=== PATIENT | female | born 1935 | race Caucasian/White ===

== ENCOUNTER 2020-11-29 12:34 | Inpatient (IN) | payer MEDICARE ==
[2020-11-29 13:47] LABS: #Lymphocytes 0.5 thou/uL (1.20-3.40); #Monocytes 0.8 thou/uL (0.11-0.59); #Neutrophils 9.6 thou/uL (1.40-6.50); %Basophils 0.2 % (0.0-1.0); %Eosinophils 0.3 % (0.0-10.0); %Lymphocytes 4.6 % (21.0-51.0); %Neutrophils 87.9 % (42.0-75.0); Hemoglobin 11.9 g/dL (12.0-16.0); Mean Corpuscular HGB CONC 33.8 g/dL (32.0-36.0); Mean Corpuscular Hemoglobin 31.3 pg (27.0-31.0); Mean Corpuscular Volume 92.7 fL (78.0-98.0); RBC Distribution Width 12.1 % (11.5-14.5); White Blood Cell (WBC) Count 10.9 thou/uL (4.8-10.8)
[2020-11-29] MEDS ORDERED: Iopamidol-370 76% 500 ML 1 ML ONE (13:48)
[2020-11-29 14:04] LABS: ALT (SGPT) 17 U/L (8-55); AST (SGOT) 42 U/L (5-34); Acetaminophen Less than 6.0 mcg/mL (10.0-30.0); Albumin 3.3 g/dL (3.4-4.8); Alcohol Less than 10 mg/dL (Less than 10); Alkaline Phosphatase 73 U/L (40-110); Anion Gap 12 mmol/L (10-20); BUN (Urea Nitrogen) 17 mg/dL (9.8-20.1); CK (CPK) 1008 U/L (29-168); Calc. Creatinine Clearance 0 mL/min (70-130); Calcium 9.4 mg/dL (7.8-10.44); Carbon Dioxide 23 mmol/L (23-31); Chloride 100 mmol/L (98-107); Globulin 2.7 g/dL (2.4-3.5); Glucose 130 mg/dL (83-110); Lipase 5 U/L (8-78); Potassium 3.7 mmol/L (3.5-5.1); Salicylate Less than 8.0 mg/dL (15.0-30.0); Sodium 131 mmol/L (136-145)
[2020-11-29] MEDS ORDERED: hydrALAZINE 20 MG/ML VIAL ONE (14:06)
[2020-11-29 14:20] LABS: CKMB 12.5 ng/mL (0-6.6)
[2020-11-29 15:09] LABS: MDiff Complete? YES; Mean Platelet Volume 8.5 fL (7.4-10.4); Platelet Clumps SLIGHT; Platelet Count 106 thou/uL (130-400); Platelet Morphology Comment Appears Decreased; RBC Morphology Normal
[2020-11-29 16:04] LABS: Bacteria/HPF None Seen HPF (None Seen); Bilirubin Negative (Negative); Blood, Urine 1+ (Negative); Clarity Clear (Clear); Glucose, Urine (Dipstick) Normal (Negative); Ketone, Urine Trace mg/dL (Negative); Leukocyte Negative Leu/uL (Negative); Nitrite Negative (Negative); Protein, Urine (Dipstick) Negative (Neg-Trace); RBC/HPF 0-3 HPF (0-3); Specific Gravity, Urine 1.013 (1.002-1.036); Squamous Epithelial None Seen HPF (0-3); Urobilinogen Normal mg/dL (Less than 2); WBC/HPF 0-3 HPF (0-3)
[2020-11-29 16:12] LABS: Amphetamine Not Detected (NotDetected); Barbiturates Screen Not Detected (NotDetected); Benzodiazepine Screen Detected (NotDetected); Cocaine Metabolite Screen Not Detected (NotDetected); Methadone Not Detected (NotDetected); Methamphetamine Not Detected (NotDetected); Opiate Screen Not Detected (NotDetected); Oxycodone Screen Not Detected (NotDetected); Phencyclidine (PCP) Not Detected (NotDetected); THC/Cannabinoid Screen Not Detected (NotDetected); Tricyclic Screen Not Detected (NotDetected)
[2020-11-29 16:12] LABS: Magnesium 1.7 mg/dL (1.6-2.6)
[2020-11-29 16:39] LABS: Phosphorus 1.7 mg/dL (2.3-4.7)
[2020-11-29 17:03] LABS: SARS-CoV-2 NAA Rapid Test Not Detected (NotDetected)
[2020-11-29] MEDS ORDERED: Magnesium Sulfate 4 GM in Sodium Chloride 0.9% 250 ML 250 ML IVPB SCH (17:15)
[2020-11-29] MEDS ORDERED: Potassium Phosphate 30 MMOL, Magnesium Sulfate 4 GM in Sodium Chloride 0.9% 500 ML IVPB SCH (17:30)
[2020-11-29] MEDS ORDERED: hydrALAZINE 20 MG/ML VIAL SLOW IVP PRN (19:10)
[2020-11-29] MEDS ORDERED: Ondansetron PF 4 MG/2 ML Vial IVP PRN (19:15)
[2020-11-29] MEDS ORDERED: Ondansetron ODT 4 MG TAB SL PRN (19:15)
[2020-11-29] MEDS ORDERED: Sodium Chloride 0.9% 1,000 ML IV SCH (20:30)
[2020-11-29] MEDS ORDERED: Calcium Carbonate 500 MG ChewTAB PO PRN (20:44)
[2020-11-29] MEDS ORDERED: Acetaminophen 325 MG TAB PO PRN (20:44)
[2020-11-29] MEDS ORDERED: hydrALAZINE 25 MG TAB PO PRN (20:44)
[2020-11-29] MEDS ORDERED: Electrolyte Replacement Protocol 1 EACH FS SCH (21:00)
[2020-11-29] MEDS ORDERED: Cyanocobalamin 1000 MCG/ML VIAL IM SCH (21:00)
[2020-11-29] MEDS: Senokot S 8.6-50 MG TAB PO SCH (23:20)
[2020-11-30] MEDS ORDERED: Magnesium 2 GM/50 ML 2 GM in Premix Bag 1 BAG IVPB SCH (05:30)
[2020-11-30 05:32] LABS: Anion Gap 12 mmol/L (10-20); BUN (Urea Nitrogen) 13 mg/dL (9.8-20.1); CK (CPK) 1349 U/L (29-168); Calc. Creatinine Clearance 41 mL/min (70-130); Calcium 8.5 mg/dL (7.8-10.44); Carbon Dioxide 21 mmol/L (23-31); Chloride 106 mmol/L (98-107); Glucose 135 mg/dL (83-110); Magnesium 2.6 mg/dL (1.6-2.6); Potassium 3.5 mmol/L (3.5-5.1); Sodium 135 mmol/L (136-145)
[2020-11-30 05:37] LABS: Troponin I 0.053 ng/mL (< 0.028)
[2020-11-30 05:43] LABS: Phosphorus 3.3 mg/dL (2.3-4.7)
[2020-11-30] MEDS: PHOS-NAK 1 PKT PACK PO SCH ×2 (05:43→09:25)
[2020-11-30 06:59] LABS: #Eosinphils 0.2 thou/uL (0.0-0.7); #Lymphocytes 0.9 thou/uL (1.20-3.40); #Monocytes 0.9 thou/uL (0.11-0.59); #Neutrophils 6.1 thou/uL (1.40-6.50); %Basophils 0.5 % (0.0-1.0); %Eosinophils 2.4 % (0.0-10.0); %Lymphocytes 11.1 % (21.0-51.0); %Neutrophils 75.1 % (42.0-75.0); Mean Corpuscular HGB CONC 31.5 g/dL (32.0-36.0); Mean Corpuscular Hemoglobin 30.1 pg (27.0-31.0); Mean Corpuscular Volume 95.6 fL (78.0-98.0); Mean Platelet Volume 6.8 fL (7.4-10.4); Platelet Count 160 thou/uL (130-400); RBC Distribution Width 12.4 % (11.5-14.5); Red Blood Cell (RBC) Count 3.65 mill/uL (4.20-5.40); White Blood Cell (WBC) Count 8.1 thou/uL (4.8-10.8)
[2020-11-30] MEDS: Aspirin 81 mg Enteric Coated Tablet PO SCH (09:21)
[2020-11-30] MEDS: Cyanocobalamin (Vitamin B-12) 1,000 MCG TAB PO SCH (09:24)
[2020-11-30] MEDS: Multivit, Therapeutic 1 TAB PO SCH (09:24)
[2020-11-30] MEDS: Senokot S 8.6-50 MG TAB PO SCH ×2 (09:25→20:17)
[2020-11-30] MEDS ORDERED: hydrALAZINE 20 MG/ML VIAL SLOW IVP SCH (17:00)
[2020-11-30] MEDS ORDERED: hydrALAZINE 20 MG/ML VIAL SLOW IVP PRN (17:06)
[2020-11-30] MEDS ORDERED: Labetalol HCl 100 MG/20 ML VIAL SLOW IVP PRN ×2 (17:08→17:25)
[2020-11-30] MEDS ORDERED: Lisinopril 10 MG TAB PO SCH (18:30)
[2020-11-30] MEDS: Diazepam 5 MG TAB PO SCH (18:32)
[2020-11-30] MEDS: Lactated Ringer's 1,000 ML IV SCH (18:49)
[2020-11-30] MEDS: hydrALAZINE 20 MG/ML VIAL SLOW IVP PRN (20:17)
[2020-11-30] MEDS ORDERED: Melatonin 3 MG TAB PO SCH (21:00)
[2020-12-01] MEDS ORDERED: diphenhydrAMINE 50 MG/ML VIAL IVP SCH (00:15)
[2020-12-01] MEDS ORDERED: Lorazepam 2 MG/ML VIAL SLOW IVP SCH (00:15)
[2020-12-01] MEDS ORDERED: Ziprasidone 20 MG VIAL ONE (00:59)
[2020-12-01 05:10] LABS: Anion Gap 12 mmol/L (10-20); BUN (Urea Nitrogen) 14 mg/dL (9.8-20.1); CK (CPK) 966 U/L (29-168); Calc. Creatinine Clearance 44 mL/min (70-130); Calcium 8.8 mg/dL (7.8-10.44); Carbon Dioxide 23 mmol/L (23-31); Chloride 105 mmol/L (98-107); Glucose 130 mg/dL (83-110); Magnesium 2.1 mg/dL (1.6-2.6); Phosphorus 3.2 mg/dL (2.3-4.7); Potassium 3.8 mmol/L (3.5-5.1); Sodium 136 mmol/L (136-145)
[2020-12-01] MEDS ORDERED: Lisinopril 10 MG TAB PO SCH (09:00)
[2020-12-01] MEDS: Citalopram 20 MG TAB PO SCH (09:18)
[2020-12-01] MEDS: Diazepam 5 MG TAB PO SCH ×2 (09:18→20:33)
[2020-12-01] MEDS: Lactated Ringer's 1,000 ML IV SCH (09:19)
[2020-12-01] MEDS: Lisinopril 10 MG TAB PO SCH (09:19)
[2020-12-01] MEDS: Senokot S 8.6-50 MG TAB PO SCH ×2 (09:19→20:32)
[2020-12-01] MEDS: Cyanocobalamin (Vitamin B-12) 1,000 MCG TAB PO SCH (09:19)
[2020-12-01] MEDS: Multivit, Therapeutic 1 TAB PO SCH (09:19)
[2020-12-01] MEDS: Aspirin 81 mg Enteric Coated Tablet PO SCH (09:19)
[2020-12-01 09:56] LABS: #Eosinphils 0.2 thou/uL (0.0-0.7); #Lymphocytes 0.8 thou/uL (1.20-3.40); #Monocytes 0.9 thou/uL (0.11-0.59); #Neutrophils 7.2 thou/uL (1.40-6.50); %Basophils 0.4 % (0.0-1.0); %Eosinophils 1.7 % (0.0-10.0); %Monocytes 9.4 % (0.0-10.0); %Neutrophils 79.5 % (42.0-75.0); Hemoglobin 11.5 g/dL (12.0-16.0); MDiff Complete? YES; Mean Corpuscular HGB CONC 32.6 g/dL (32.0-36.0); Mean Corpuscular Hemoglobin 31.2 pg (27.0-31.0); Mean Corpuscular Volume 95.7 fL (78.0-98.0); Platelet Clumps MODERATE; Platelet Morphology Comment PLT clumps seen-ADEQ; RBC Distribution Width 12.2 % (11.5-14.5); Red Blood Cell (RBC) Count 3.69 mill/uL (4.20-5.40)
[2020-12-01] MEDS: hydrALAZINE 20 MG/ML VIAL SLOW IVP PRN (12:17)
[2020-12-01] MEDS: Melatonin 3 MG TAB PO SCH (20:33)
[2020-12-02] MEDS: Lactated Ringer's 1,000 ML IV SCH (01:30)
[2020-12-02 05:21] LABS: Phosphorus 3.6 mg/dL (2.3-4.7)
[2020-12-02 05:24] LABS: Anion Gap 9 mmol/L (10-20); BUN (Urea Nitrogen) 16 mg/dL (9.8-20.1); CK (CPK) 315 U/L (29-168); Calc. Creatinine Clearance 44 mL/min (70-130); Calcium 8.8 mg/dL (7.8-10.44); Carbon Dioxide 26 mmol/L (23-31); Chloride 106 mmol/L (98-107); Glucose 97 mg/dL (83-110); Magnesium 1.9 mg/dL (1.6-2.6); Potassium 4.2 mmol/L (3.5-5.1); Sodium 137 mmol/L (136-145)
[2020-12-02 06:56] LABS: #Eosinphils 0.2 thou/uL (0.0-0.7); #Lymphocytes 0.8 thou/uL (1.20-3.40); #Monocytes 0.7 thou/uL (0.11-0.59); #Neutrophils 5.2 thou/uL (1.40-6.50); %Basophils 0.1 % (0.0-1.0); %Eosinophils 2.8 % (0.0-10.0); %Lymphocytes 11.6 % (21.0-51.0); %Monocytes 9.7 % (0.0-10.0); %Neutrophils 75.8 % (42.0-75.0); Hemoglobin 10.3 g/dL (12.0-16.0); MDiff Complete? YES; Mean Corpuscular HGB CONC 32.4 g/dL (32.0-36.0); Mean Corpuscular Hemoglobin 31.5 pg (27.0-31.0); Mean Platelet Volume 9.2 fL (7.4-10.4); Platelet Clumps MARKED; Platelet Count 146 thou/uL (130-400); Platelet Morphology Comment PLT clumps seen-ADEQ; RBC Distribution Width 12.4 % (11.5-14.5); RBC Morphology Normal; Red Blood Cell (RBC) Count 3.26 mill/uL (4.20-5.40); White Blood Cell (WBC) Count 6.9 thou/uL (4.8-10.8)
[2020-12-02] MEDS ORDERED: Magnesium 2 GM/50 ML 2 GM in Premix Bag 1 BAG IVPB SCH (07:15)
[2020-12-02] MEDS: Senokot S 8.6-50 MG TAB PO SCH ×2 (08:50→20:07)
[2020-12-02] MEDS: Diazepam 5 MG TAB PO SCH ×2 (08:50→20:07)
[2020-12-02] MEDS: Multivit, Therapeutic 1 TAB PO SCH (08:50)
[2020-12-02] MEDS: Cyanocobalamin (Vitamin B-12) 1,000 MCG TAB PO SCH (08:50)
[2020-12-02] MEDS: Lisinopril 10 MG TAB PO SCH (08:51)
[2020-12-02] MEDS: Citalopram 20 MG TAB PO SCH (08:51)
[2020-12-02] MEDS: Aspirin 81 mg Enteric Coated Tablet PO SCH (08:51)
[2020-12-02 11:15] VITALS: BMI 19.8
[2020-12-02] MEDS: Melatonin 3 MG TAB PO SCH (20:07)
[2020-12-03 05:18] LABS: #Eosinphils 0.3 thou/uL (0.0-0.7); #Lymphocytes 0.9 thou/uL (1.20-3.40); #Monocytes 0.7 thou/uL (0.11-0.59); #Neutrophils 4.7 thou/uL (1.40-6.50); %Basophils 0.5 % (0.0-1.0); %Eosinophils 4.6 % (0.0-10.0); %Neutrophils 69.9 % (42.0-75.0); Hemoglobin 10.5 g/dL (12.0-16.0); Hypochromia SLIGHT = 6-15 cells (100X) (0-5/hpf); MDiff Complete? YES; Mean Corpuscular HGB CONC 33.3 g/dL (32.0-36.0); Mean Corpuscular Hemoglobin 32.1 pg (27.0-31.0); Mean Corpuscular Volume 96.6 fL (78.0-98.0); Mean Platelet Volume 8.8 fL (7.4-10.4); Platelet Morphology Comment Appears Adequate; RBC Distribution Width 12.3 % (11.5-14.5); Red Blood Cell (RBC) Count 3.26 mill/uL (4.20-5.40); White Blood Cell (WBC) Count 6.7 thou/uL (4.8-10.8)
[2020-12-03 05:19] LABS: Phosphorus 3.2 mg/dL (2.3-4.7)
[2020-12-03 05:23] LABS: Anion Gap 7 mmol/L (10-20); BUN (Urea Nitrogen) 18 mg/dL (9.8-20.1); CK (CPK) 144 U/L (29-168); Calc. Creatinine Clearance 49 mL/min (70-130); Calcium 8.4 mg/dL (7.8-10.44); Carbon Dioxide 29 mmol/L (23-31); Chloride 104 mmol/L (98-107); Glucose 103 mg/dL (83-110); Magnesium 1.9 mg/dL (1.6-2.6); Potassium 3.9 mmol/L (3.5-5.1); Sodium 136 mmol/L (136-145)
[2020-12-03] MEDS ORDERED: Magnesium 2 GM/50 ML 2 GM in Premix Bag 1 BAG IVPB SCH (06:30)
[2020-12-03] MEDS: Citalopram 20 MG TAB PO SCH (08:01)
[2020-12-03] MEDS: Cyanocobalamin (Vitamin B-12) 1,000 MCG TAB PO SCH (08:01)
[2020-12-03] MEDS: Lisinopril 10 MG TAB PO SCH (08:01)
[2020-12-03] MEDS: Senokot S 8.6-50 MG TAB PO SCH ×2 (08:01→21:20)
[2020-12-03] MEDS: Diazepam 5 MG TAB PO SCH ×2 (08:01→21:19)
[2020-12-03] MEDS: Multivit, Therapeutic 1 TAB PO SCH (08:01)
[2020-12-03] MEDS: Aspirin 81 mg Enteric Coated Tablet PO SCH (08:01)
[2020-12-03] MEDS: hydrALAZINE 20 MG/ML VIAL SLOW IVP PRN (11:44)
[2020-12-03] MEDS: Melatonin 3 MG TAB PO SCH (21:19)
[2020-12-04 05:06] LABS: Anion Gap 11 mmol/L (10-20); BUN (Urea Nitrogen) 19 mg/dL (9.8-20.1); Calc. Creatinine Clearance 51 mL/min (70-130); Calcium 8.7 mg/dL (7.8-10.44); Carbon Dioxide 25 mmol/L (23-31); Chloride 102 mmol/L (98-107); Glucose 112 mg/dL (83-110); Potassium 4.5 mmol/L (3.5-5.1); Sodium 133 mmol/L (136-145)
[2020-12-04] MEDS: hydrALAZINE 20 MG/ML VIAL SLOW IVP PRN ×2 (05:27→17:36)
[2020-12-04] MEDS: Senokot S 8.6-50 MG TAB PO SCH ×2 (09:10→20:46)
[2020-12-04] MEDS: Lisinopril 10 MG TAB PO SCH (09:11)
[2020-12-04] MEDS: Multivit, Therapeutic 1 TAB PO SCH (09:11)
[2020-12-04] MEDS: Cyanocobalamin (Vitamin B-12) 1,000 MCG TAB PO SCH (09:11)
[2020-12-04] MEDS: Citalopram 20 MG TAB PO SCH (09:11)
[2020-12-04] MEDS: Aspirin 81 mg Enteric Coated Tablet PO SCH (09:11)
[2020-12-04] MEDS: Diazepam 5 MG TAB PO SCH ×2 (09:11→20:46)
[2020-12-04] MEDS: Melatonin 3 MG TAB PO SCH (20:46)
[2020-12-04] MEDS: Gabapentin 300 MG CAP PO SCH (21:41)
[2020-12-05] MEDS: Cyanocobalamin (Vitamin B-12) 1,000 MCG TAB PO SCH (09:06)
[2020-12-05] MEDS: Lisinopril 10 MG TAB PO SCH (09:06)
[2020-12-05] MEDS: Gabapentin 300 MG CAP PO SCH ×2 (09:06→09:09)
[2020-12-05] MEDS: Aspirin 81 mg Enteric Coated Tablet PO SCH (09:06)
[2020-12-05] MEDS: Senokot S 8.6-50 MG TAB PO SCH ×2 (09:07→21:14)
[2020-12-05] MEDS: Citalopram 20 MG TAB PO SCH (09:07)
[2020-12-05] MEDS: Diazepam 5 MG TAB PO SCH ×2 (09:07→21:15)
[2020-12-05] MEDS: Multivit, Therapeutic 1 TAB PO SCH (09:07)
[2020-12-05] MEDS: Diclofenac 1% 100 GM GEL TP SCH ×3 (13:35→21:14)
[2020-12-05] MEDS ORDERED: Polyethylene Glycol 3350 17 GM Packet PO SCH (15:15)
[2020-12-05] MEDS: Melatonin 3 MG TAB PO SCH (21:13)
[2020-12-06] MEDS ORDERED: Polyethylene Glycol 3350 17 GM Packet PO SCH (09:00)
[2020-12-06] MEDS: Senokot S 8.6-50 MG TAB PO SCH (09:03)
[2020-12-06] MEDS: Lisinopril 10 MG TAB PO SCH (09:03)
[2020-12-06] MEDS: Aspirin 81 mg Enteric Coated Tablet PO SCH (09:03)
[2020-12-06] MEDS: Citalopram 20 MG TAB PO SCH (09:03)
[2020-12-06] MEDS: Cyanocobalamin (Vitamin B-12) 1,000 MCG TAB PO SCH (09:03)
[2020-12-06] MEDS: Multivit, Therapeutic 1 TAB PO SCH (09:03)
[2020-12-06] MEDS: Diazepam 5 MG TAB PO SCH (09:03)
[2020-12-06] MEDS: Diclofenac 1% 100 GM GEL TP SCH ×2 (09:23→14:26)
[2020-12-06 16:22] VITALS: BP 181/85; TEMP 98.4
== END 2020-12-06 16:40 | DRG 558 ==
LOC: ERS 12:34 → ERHOLD 16:04 → 2NO 18:17
PROVIDERS: ADMIT Internal Medicine; ATTEND Internal Medicine
DX: M62.82 Rhabdomyolysis (principal); F33.9 Major depressive disorder, recurrent, unspecified; Z20.822 Contact with and (suspected) exposure to COVID-19; E87.1 Hypo-osmolality and hyponatremia; F05 Delirium due to known physiological condition; F19.931 Other psychoactive substance use, unspecified with withdrawal delirium; F03.91 Unspecified dementia, unspecified severity, with behavioral disturbance; I16.0 Hypertensive urgency; I10 Essential (primary) hypertension; G62.9 Polyneuropathy, unspecified; F41.9 Anxiety disorder, unspecified; I44.0 Atrioventricular block, first degree; I08.3 Combined rheumatic disorders of mitral, aortic and tricuspid valves; M79.7 Fibromyalgia; Z60.2 Problems related to living alone; R77.8 Other specified abnormalities of plasma proteins; E83.39 Other disorders of phosphorus metabolism; E83.42 Hypomagnesemia; Z78.1 Physical restraint status; Z88.8 Allergy status to other drugs, medicaments and biological substances; Z79.899 Other long term (current) drug therapy
CPT/HCPCS: 0240U; 36415; 70450; 71045; 71275; 72125; 80048; 80053; 80306; 80307; 81003; 81015; 82140; 82550; 82553; 82607; 82746; 83690; 83735; 83880; 84100; 84443; 84484; 85025; 85379; 93005; 93306; 93880; 96374; J0360; J2060; J3420; J3475; J3486; J7030; Q9967

== ENCOUNTER 2020-12-31 11:45 | Outpatient (CLI) | payer MEDICARE | END 2020-12-31 11:46 | disposition home or self-care (01) | LOC: RAD 11:45 | PROVIDERS: ATTEND Family Medicine | DX: M25.561 Pain in right knee (principal); M25.552 Pain in left hip; M17.12 Unilateral primary osteoarthritis, left knee; M16.12 Unilateral primary osteoarthritis, left hip ==

== ENCOUNTER 2021-10-17 11:35 | Emergency (ER) | payer MEDICARE ==
[2021-10-17] MEDS ORDERED: HYDROcodone/Acetaminophen 10/325 mg Tablet ONE (12:43)
== END 2021-10-17 14:20 | disposition home or self-care (01) ==
LOC: ERS 11:35
DX: S22.32XA Fracture of one rib, left side, initial encounter for closed fracture (principal); W19.XXXA Unspecified fall, initial encounter
CPT/HCPCS: 71045

== ENCOUNTER 2021-10-21 08:51 | Emergency (ER) | payer OTHER, MEDICARE ==
[2021-10-21 09:50] LABS: #Eosinphils 0.1 thou/uL (0.0-0.7); #Lymphocytes 0.7 thou/uL (1.20-3.40); #Monocytes 0.9 thou/uL (0.11-0.59); #Neutrophils 9.8 thou/uL (1.40-6.50); %Eosinophils 0.6 % (0.0-10.0); %Lymphocytes 5.7 % (21.0-51.0); %Monocytes 7.9 % (0.0-10.0); %Neutrophils 85.9 % (42.0-75.0); Hemoglobin 12.6 g/dL (12.0-16.0); Mean Corpuscular HGB CONC 32.4 g/dL (32.0-36.0); Mean Corpuscular Hemoglobin 31.7 pg (27.0-31.0); RBC Distribution Width 11.5 % (11.5-14.5); Red Blood Cell (RBC) Count 3.96 mill/uL (4.20-5.40); White Blood Cell (WBC) Count 11.4 thou/uL (4.8-10.8)
[2021-10-21 10:03] LABS: MDiff Complete? YES; Mean Platelet Volume 8.9 fL (7.4-10.4); Platelet Clumps SLIGHT; Platelet Count 138 thou/uL (130-400); Platelet Morphology Comment Appears Adequate; Polychromasia SLIGHT = 2-3 cells (100X) (0-2/hpf)
[2021-10-21 10:06] LABS: ALT (SGPT) 18 U/L (8-55); AST (SGOT) 31 U/L (5-34); Albumin 3.8 g/dL (3.4-4.8); Alkaline Phosphatase 80 U/L (40-110); Anion Gap 14 mmol/L (10-20); BUN (Urea Nitrogen) 25 mg/dL (9.8-20.1); Bilirubin, Total 0.9 mg/dL (0.2-1.2); Calc. Creatinine Clearance 0 mL/min (70-130); Calcium 9.9 mg/dL (7.8-10.44); Carbon Dioxide 28 mmol/L (23-31); Chloride 93 mmol/L (98-107); Globulin 3.1 g/dL (2.4-3.5); Glucose 108 mg/dL (83-110); Potassium 4.3 mmol/L (3.5-5.1); Protein, Total 6.9 g/dL (5.8-8.1); Sodium 131 mmol/L (136-145)
[2021-10-21 10:15] LABS: Bilirubin Negative (Negative); Blood, Urine Negative (Negative); Clarity Clear (Clear); Glucose, Urine (Dipstick) Normal (Negative); Ketone, Urine Negative (Negative); Leukocyte Negative Leu/uL (Negative); Nitrite Negative (Negative); Protein, Urine (Dipstick) Negative (Neg-Trace); Specific Gravity, Urine 1.013 (1.002-1.036); Urobilinogen Normal mg/dL (Less than 2); pH, Urine 6.5 (5.0-9.0)
== END 2021-10-21 14:50 | disposition home or self-care (01) ==
LOC: ERS 08:51
DX: M43.12 Spondylolisthesis, cervical region (principal); I44.0 Atrioventricular block, first degree; I10 Essential (primary) hypertension; F03.90 Unspecified dementia, unspecified severity, without behavioral disturbance, psychotic disturbance, mood disturbance, and anxiety; G62.9 Polyneuropathy, unspecified; M79.7 Fibromyalgia; W01.198A Fall on same level from slipping, tripping and stumbling with subsequent striking against other object, initial encounter; Z79.82 Long term (current) use of aspirin; Z79.899 Other long term (current) drug therapy
CPT/HCPCS: 36415; 70450; 72125; 80053; 81003; 85025; 93005; 94760

== ENCOUNTER 2021-11-22 10:28 | Outpatient (CLI) | payer MEDICARE | END 2021-11-22 10:29 | disposition home or self-care (01) | LOC: TBSIIMAG 10:28 | PROVIDERS: ATTEND Neurological Surgery | DX: M43.12 Spondylolisthesis, cervical region (principal); M25.78 Osteophyte, vertebrae; M47.812 Spondylosis without myelopathy or radiculopathy, cervical region; M50.31 Other cervical disc degeneration, high cervical region; M48.02 Spinal stenosis, cervical region; M43.13 Spondylolisthesis, cervicothoracic region; M48.03 Spinal stenosis, cervicothoracic region; M47.813 Spondylosis without myelopathy or radiculopathy, cervicothoracic region | CPT/HCPCS: 72050; 72141 ==

== ENCOUNTER 2022-01-03 08:00 | Inpatient (IN) | payer MEDICARE ==
[2022-01-04 15:22] VITALS: BMI 18.6
[2022-01-06] MEDS ORDERED: Neomycin-Polymyxin 1 ML AMP ONE (08:40)
[2022-01-06] MEDS ORDERED: Thrombin 5000 UNITS/5 ML VIAL ONE (08:40)
[2022-01-06] MEDS ORDERED: Bupivacaine HCl 0.5%/Epinephrine 1:200,000/PF 30 ml Vial ONE (08:40)
[2022-01-06] MEDS ORDERED: Bacitracin Zinc Ointment 30 gm TUBE ONE (08:40)
[2022-01-06] MEDS ORDERED: fentaNYL Citrate/PF 100 MCG/2 ML SYRINGE ONE (09:15)
[2022-01-06] MEDS ORDERED: Sodium Chloride 0.9% 100 ML ONE (09:21)
[2022-01-06] MEDS ORDERED: CEFAZOLIN 2 GM VIAL ONE (09:21)
[2022-01-06] MEDS ORDERED: Glycopyrrolate 0.2 MG/ML 5 ML SYRINGE ONE (09:38)
[2022-01-06] MEDS ORDERED: ePHEDrine 50 MG/ML VIAL ONE (09:38)
[2022-01-06] MEDS ORDERED: Phenylephrine 10 MG/ML VIAL ONE (09:38)
[2022-01-06] MEDS ORDERED: Ketorolac Tromethamine 30 MG/ML VIAL ONE (09:38)
[2022-01-06] MEDS ORDERED: NEOSTIGMINE 3 MG/3 ML SYR 3 MG/3 ML SYRINGE ONE (09:38)
[2022-01-06] MEDS ORDERED: Rocuronium Bromide 10 MG/ML (10ML VIAL) ONE (09:38)
[2022-01-06] MEDS ORDERED: Dexamethasone 20 MG/5 ML VIAL ONE (09:38)
[2022-01-06] MEDS ORDERED: Ondansetron PF 4 MG/2 ML Vial ONE (09:38)
[2022-01-06] MEDS ORDERED: PROPOFOL 200 MG/20 ML VIAL ONE (09:38)
[2022-01-06] MEDS ORDERED: HYDROmorphone 2 MG/ML VIAL ONE (13:05)
[2022-01-06] MEDS ORDERED: diphenhydrAMINE 25 MG CAP PO PRN (13:23)
[2022-01-06] MEDS ORDERED: Promethazine HCl 12.5 MG SUPP PR PRN (13:23)
[2022-01-06] MEDS ORDERED: Acetaminophen 650 MG Suppository PR PRN (13:23)
[2022-01-06] MEDS ORDERED: Promethazine 25 MG TAB PO PRN (13:23)
[2022-01-06] MEDS ORDERED: HYDROcodone/Acetaminophen 10/325 mg Tablet PO PRN (13:23)
[2022-01-06] MEDS ORDERED: Morphine 2 MG/ML VIAL SLOW IVP PRN (13:23)
[2022-01-06] MEDS ORDERED: Ondansetron PF 4 MG/2 ML Vial IVP PRN (13:23)
[2022-01-06] MEDS ORDERED: Promethazine HCl 25 MG/ML VIAL IM PRN ×2 (13:23→13:41)
[2022-01-06] MEDS ORDERED: Promethazine HCl 25 MG/ML VIAL IVPB PRN (13:41)
[2022-01-06] MEDS ORDERED: Ondansetron HCl/PF 4 MG/2 ML Vial IVP PRN (13:41)
[2022-01-06] MEDS ORDERED: Polyethylene Glycol 3350 17 GM Packet PO PRN (15:35)
[2022-01-06 15:51] LABS: #Basophils 0.2 thou/uL (0.0-0.2); #Lymphocytes 0.2 thou/uL (1.20-3.40); #Monocytes 0.2 thou/uL (0.11-0.59); #Neutrophils 11.1 thou/uL (1.40-6.50); %Basophils 1.9 % (0.0-1.0); %Eosinophils 0.1 % (0.0-10.0); %Lymphocytes 1.6 % (21.0-51.0); %Monocytes 1.9 % (0.0-10.0); %Neutrophils 94.4 % (42.0-75.0); Hemoglobin 11.9 g/dL (12.0-16.0); Mean Corpuscular HGB CONC 33.5 g/dL (32.0-36.0); Mean Corpuscular Hemoglobin 32.1 pg (27.0-31.0); Mean Corpuscular Volume 95.9 fL (78.0-98.0); Mean Platelet Volume 6.5 fL (7.4-10.4); Platelet Count 213 thou/uL (130-400); RBC Distribution Width 11.6 % (11.5-14.5); Red Blood Cell (RBC) Count 3.71 mill/uL (4.20-5.40); White Blood Cell (WBC) Count 11.8 thou/uL (4.8-10.8)
[2022-01-06 16:09] LABS: Anion Gap 16 mmol/L (10-20); BUN (Urea Nitrogen) 26 mg/dL (9.8-20.1); Calc. Creatinine Clearance 28 mL/min (70-130); Calcium 9.2 mg/dL (7.8-10.44); Carbon Dioxide 23 mmol/L (23-31); Chloride 96 mmol/L (98-107); Estimated GFR 44; Glucose 153 mg/dL (83-110); Potassium 3.9 mmol/L (3.5-5.1); Sodium 131 mmol/L (136-145)
[2022-01-06 17:26] LABS: Magnesium 1.7 mg/dL (1.6-2.6)
[2022-01-06] MEDS: CEFAZOLIN 2 GM in Sodium Chloride 0.9% 100 ML IVPB SCH (18:52)
[2022-01-06] MEDS: Senokot S 8.6-50 MG TAB PO SCH (21:22)
[2022-01-06] MEDS: busPIRone HCl 5 MG TAB PO SCH (21:22)
[2022-01-06] MEDS: Acetaminophen/Codeine 30-300mg Tablet PO PRN (21:22)
[2022-01-06] MEDS: Sodium Chloride 0.9% 1,000 ML IV SCH (21:22)
[2022-01-07] MEDS: Sodium Chloride 0.9% 1,000 ML IV SCH (00:29)
[2022-01-07] MEDS: CEFAZOLIN 2 GM in Sodium Chloride 0.9% 100 ML IVPB SCH ×2 (01:10→09:22)
[2022-01-07 06:00] LABS: Anion Gap 12 mmol/L (10-20); BUN (Urea Nitrogen) 26 mg/dL (9.8-20.1); Calc. Creatinine Clearance 27 mL/min (70-130); Calcium 8.6 mg/dL (7.8-10.44); Carbon Dioxide 26 mmol/L (23-31); Chloride 96 mmol/L (98-107); Estimated GFR 44; Glucose 128 mg/dL (83-110); Potassium 4.6 mmol/L (3.5-5.1); Sodium 129 mmol/L (136-145)
[2022-01-07 06:11] LABS: #Lymphocytes 0.8 thou/uL (1.20-3.40); #Monocytes 1.1 thou/uL (0.11-0.59); #Neutrophils 7.2 thou/uL (1.40-6.50); %Basophils 0.1 % (0.0-1.0); %Eosinophils 0.3 % (0.0-10.0); %Lymphocytes 8.4 % (21.0-51.0); %Monocytes 12.1 % (0.0-10.0); %Neutrophils 79.2 % (42.0-75.0); Hemoglobin 9.8 g/dL (12.0-16.0); MDiff Complete? YES; Mean Corpuscular HGB CONC 33.3 g/dL (32.0-36.0); Mean Corpuscular Hemoglobin 32.2 pg (27.0-31.0); Mean Corpuscular Volume 96.7 fL (78.0-98.0); Mean Platelet Volume 8.2 fL (7.4-10.4); Platelet Clumps MODERATE; Platelet Morphology Comment PLT clumps seen-ADEQ; RBC Distribution Width 11.7 % (11.5-14.5); Red Blood Cell (RBC) Count 3.05 mill/uL (4.20-5.40); White Blood Cell (WBC) Count 9.1 thou/uL (4.8-10.8)
[2022-01-07] MEDS ORDERED: Hydrochlorothiazide 25 MG TAB PO SCH (09:00)
[2022-01-07] MEDS: busPIRone HCl 5 MG TAB PO SCH ×2 (09:18→20:45)
[2022-01-07] MEDS: Senokot S 8.6-50 MG TAB PO SCH ×2 (09:18→20:45)
[2022-01-07] MEDS: Citalopram 20 MG TAB PO SCH (09:18)
[2022-01-07] MEDS: Acetaminophen/Codeine 30-300mg Tablet PO PRN ×3 (09:19→20:45)
[2022-01-07] MEDS ORDERED: Sodium Chloride 0.9% 1,000 ML IV SCH (10:42)
[2022-01-07] MEDS: hydrALAZINE 20 MG/ML VIAL SLOW IVP PRN (11:59)
[2022-01-08] MEDS: hydrALAZINE 20 MG/ML VIAL SLOW IVP PRN ×2 (05:03→21:59)
[2022-01-08 06:06] LABS: Anion Gap 12 mmol/L (10-20); BUN (Urea Nitrogen) 17 mg/dL (9.8-20.1); Calc. Creatinine Clearance 40 mL/min (70-130); Carbon Dioxide 24 mmol/L (23-31); Chloride 94 mmol/L (98-107); Estimated GFR 68; Glucose 125 mg/dL (83-110); Potassium 4.2 mmol/L (3.5-5.1); Sodium 126 mmol/L (136-145)
[2022-01-08 06:13] LABS: #Eosinphils 0.1 thou/uL (0.0-0.7); #Monocytes 1.3 thou/uL (0.11-0.59); #Neutrophils 8.5 thou/uL (1.40-6.50); %Basophils 0.3 % (0.0-1.0); %Eosinophils 0.9 % (0.0-10.0); %Lymphocytes 9.3 % (21.0-51.0); %Monocytes 11.8 % (0.0-10.0); %Neutrophils 77.6 % (42.0-75.0); Hemoglobin 11.2 g/dL (12.0-16.0); Mean Corpuscular HGB CONC 32.4 g/dL (32.0-36.0); Mean Corpuscular Hemoglobin 31.6 pg (27.0-31.0); Mean Corpuscular Volume 97.6 fL (78.0-98.0); Mean Platelet Volume 6.1 fL (7.4-10.4); Platelet Count 182 thou/uL (130-400); RBC Distribution Width 11.6 % (11.5-14.5); Red Blood Cell (RBC) Count 3.56 mill/uL (4.20-5.40); White Blood Cell (WBC) Count 10.9 thou/uL (4.8-10.8)
[2022-01-08] MEDS ORDERED: Labetalol HCl 100 MG/20 ML VIAL SLOW IVP SCH (07:45)
[2022-01-08] MEDS ORDERED: Sodium Chloride 0.9% 1,000 ML IV SCH ×2 (07:45)
[2022-01-08] MEDS: Citalopram 20 MG TAB PO SCH (08:28)
[2022-01-08] MEDS: Senokot S 8.6-50 MG TAB PO SCH ×2 (08:28→20:53)
[2022-01-08] MEDS: Acetaminophen 325 MG TAB PO PRN ×2 (08:28→20:53)
[2022-01-08] MEDS: busPIRone HCl 5 MG TAB PO SCH ×2 (08:28→20:52)
[2022-01-08] MEDS: Lisinopril 20 MG TAB PO SCH ×2 (08:28→20:52)
[2022-01-08 15:15] LABS: Anion Gap 11 mmol/L (10-20); BUN (Urea Nitrogen) 17 mg/dL (9.8-20.1); Calc. Creatinine Clearance 41 mL/min (70-130); Calcium 8.7 mg/dL (7.8-10.44); Carbon Dioxide 23 mmol/L (23-31); Chloride 89 mmol/L (98-107); Estimated GFR 71; Glucose 173 mg/dL (83-110); Potassium 3.9 mmol/L (3.5-5.1)
[2022-01-08 15:22] LABS: Sodium 119 mmol/L (136-145)
[2022-01-08 19:55] LABS: Anion Gap 14 mmol/L (10-20); BUN (Urea Nitrogen) 17 mg/dL (9.8-20.1); Calc. Creatinine Clearance 41 mL/min (70-130); Calcium 9.4 mg/dL (7.8-10.44); Carbon Dioxide 24 mmol/L (23-31); Chloride 87 mmol/L (98-107); Estimated GFR 70; Glucose 177 mg/dL (83-110); Magnesium 1.4 mg/dL (1.6-2.6); Potassium 3.9 mmol/L (3.5-5.1); Sodium 121 mmol/L (136-145)
[2022-01-09] MEDS: hydrALAZINE 20 MG/ML VIAL SLOW IVP PRN ×2 (03:53→15:37)
[2022-01-09 05:36] LABS: #Eosinphils 0.1 thou/uL (0.0-0.7); #Lymphocytes 0.8 thou/uL (1.20-3.40); #Monocytes 1.4 thou/uL (0.11-0.59); #Neutrophils 10.8 thou/uL (1.40-6.50); %Basophils 0.1 % (0.0-1.0); %Eosinophils 0.7 % (0.0-10.0); %Monocytes 10.6 % (0.0-10.0); %Neutrophils 82.6 % (42.0-75.0); Hemoglobin 10.8 g/dL (12.0-16.0); Mean Corpuscular HGB CONC 33.9 g/dL (32.0-36.0); Mean Corpuscular Hemoglobin 32.1 pg (27.0-31.0); Mean Corpuscular Volume 94.8 fL (78.0-98.0); Mean Platelet Volume 8.7 fL (7.4-10.4); Platelet Count 148 thou/uL (130-400); RBC Distribution Width 11.5 % (11.5-14.5); Red Blood Cell (RBC) Count 3.36 mill/uL (4.20-5.40)
[2022-01-09 05:54] LABS: Anion Gap 14 mmol/L (10-20); BUN (Urea Nitrogen) 16 mg/dL (9.8-20.1); Calc. Creatinine Clearance 46 mL/min (70-130); Calcium 9.4 mg/dL (7.8-10.44); Carbon Dioxide 22 mmol/L (23-31); Chloride 88 mmol/L (98-107); Estimated GFR 80; Glucose 137 mg/dL (83-110); Magnesium 1.4 mg/dL (1.6-2.6); Potassium 3.8 mmol/L (3.5-5.1); Sodium 120 mmol/L (136-145)
[2022-01-09] MEDS ORDERED: Magnesium Sulfate 3 GM in Sodium Chloride 0.9% 100 ML IVPB SCH (09:00)
[2022-01-09] MEDS: Lisinopril 20 MG TAB PO SCH ×2 (09:06→20:15)
[2022-01-09] MEDS: Senokot S 8.6-50 MG TAB PO SCH ×2 (09:06→20:15)
[2022-01-09] MEDS: busPIRone HCl 5 MG TAB PO SCH ×2 (09:06→20:15)
[2022-01-09 17:17] LABS: Potassium, Urine 45.4 mmol/L
[2022-01-09 17:17] LABS: Anion Gap 13 mmol/L (10-20); BUN (Urea Nitrogen) 20 mg/dL (9.8-20.1); Calc. Creatinine Clearance 40 mL/min (70-130); Calcium 9.3 mg/dL (7.8-10.44); Carbon Dioxide 23 mmol/L (23-31); Chloride 88 mmol/L (98-107); Estimated GFR 68; Glucose 124 mg/dL (83-110); Potassium 3.8 mmol/L (3.5-5.1); Sodium 120 mmol/L (136-145)
[2022-01-09] MEDS ORDERED: Conivaptan 20 MG in Premix Bag 1 BAG IVPB SCH (17:45)
[2022-01-09] MEDS: Sodium Chloride 1 GM TAB PO SCH (20:15)
[2022-01-10] MEDS: hydrALAZINE 20 MG/ML VIAL SLOW IVP PRN ×3 (06:20→23:13)
[2022-01-10 06:42] LABS: Anion Gap 12 mmol/L (10-20); BUN (Urea Nitrogen) 24 mg/dL (9.8-20.1); Calc. Creatinine Clearance 41 mL/min (70-130); Calcium 8.7 mg/dL (7.8-10.44); Carbon Dioxide 23 mmol/L (23-31); Chloride 91 mmol/L (98-107); Estimated GFR 70; Glucose 107 mg/dL (83-110); Potassium 3.3 mmol/L (3.5-5.1); Sodium 123 mmol/L (136-145)
[2022-01-10] MEDS ORDERED: Potassium Bicarbonate/Cit Ac 20 MEQ TAB PO SCH ×2 (08:00)
[2022-01-10] MEDS ORDERED: Amlodipine 10 MG TAB PO SCH (09:00)
[2022-01-10] MEDS: Senokot S 8.6-50 MG TAB PO SCH ×2 (10:04→20:55)
[2022-01-10] MEDS: Lisinopril 20 MG TAB PO SCH ×2 (10:05→20:59)
[2022-01-10] MEDS: Potassium Chloride 20 MEQ TAB PO SCH ×2 (10:07→16:14)
[2022-01-10] MEDS: busPIRone HCl 5 MG TAB PO SCH ×2 (10:07→20:55)
[2022-01-10] MEDS: Sodium Chloride 1 GM TAB PO SCH ×3 (10:07→20:55)
[2022-01-10] MEDS: Acetaminophen 325 MG TAB PO PRN (10:08)
[2022-01-10 10:17] LABS: #Eosinphils 0.1 thou/uL (0.0-0.7); #Lymphocytes 0.6 thou/uL (1.20-3.40); #Monocytes 1.2 thou/uL (0.11-0.59); #Neutrophils 8.7 thou/uL (1.40-6.50); %Basophils 0.2 % (0.0-1.0); %Eosinophils 1.4 % (0.0-10.0); %Lymphocytes 5.7 % (21.0-51.0); %Monocytes 11.1 % (0.0-10.0); %Neutrophils 81.6 % (42.0-75.0); Hemoglobin 10.3 g/dL (12.0-16.0); Mean Corpuscular HGB CONC 34.8 g/dL (32.0-36.0); Mean Corpuscular Hemoglobin 33.2 pg (27.0-31.0); Mean Corpuscular Volume 95.5 fL (78.0-98.0); Platelet Count 188 thou/uL (130-400); RBC Distribution Width 11.5 % (11.5-14.5); Red Blood Cell (RBC) Count 3.09 mill/uL (4.20-5.40); White Blood Cell (WBC) Count 10.7 thou/uL (4.8-10.8)
[2022-01-10 16:12] LABS: Bacteria/HPF None Seen HPF (None Seen); Bilirubin Negative (Negative); Blood, Urine Trace (Negative); Clarity Clear (Clear); Glucose, Urine (Dipstick) 50 mg/dL (Negative); Ketone, Urine Negative (Negative); Leukocyte Negative Leu/uL (Negative); Nitrite Negative (Negative); Protein, Urine (Dipstick) 10 mg/dL (Neg-Trace); Specific Gravity, Urine 1.018 (1.002-1.036); Squamous Epithelial 0-3 HPF (0-3); Urobilinogen Normal mg/dL (Less than 2)
[2022-01-10] MEDS ORDERED: Gabapentin 300 MG CAP PO SCH (22:39)
[2022-01-11 06:07] LABS: #Eosinphils 0.3 thou/uL (0.0-0.7); #Lymphocytes 0.7 thou/uL (1.20-3.40); #Monocytes 1.3 thou/uL (0.11-0.59); #Neutrophils 6.7 thou/uL (1.40-6.50); %Basophils 0.2 % (0.0-1.0); %Eosinophils 3.1 % (0.0-10.0); %Lymphocytes 7.9 % (21.0-51.0); %Monocytes 14.2 % (0.0-10.0); %Neutrophils 74.6 % (42.0-75.0); Hemoglobin 9.8 g/dL (12.0-16.0); Mean Corpuscular HGB CONC 33.6 g/dL (32.0-36.0); Mean Corpuscular Hemoglobin 32.2 pg (27.0-31.0); Mean Corpuscular Volume 95.8 fL (78.0-98.0); Mean Platelet Volume 7.9 fL (7.4-10.4); Platelet Count 215 thou/uL (130-400); RBC Distribution Width 11.8 % (11.5-14.5); Red Blood Cell (RBC) Count 3.04 mill/uL (4.20-5.40)
[2022-01-11 06:30] LABS: Anion Gap 10 mmol/L (10-20); BUN (Urea Nitrogen) 23 mg/dL (9.8-20.1); Calc. Creatinine Clearance 42 mL/min (70-130); Calcium 8.9 mg/dL (7.8-10.44); Carbon Dioxide 22 mmol/L (23-31); Chloride 98 mmol/L (98-107); Estimated GFR 73; Glucose 106 mg/dL (83-110); Magnesium 1.8 mg/dL (1.6-2.6); Potassium 4.2 mmol/L (3.5-5.1); Sodium 126 mmol/L (136-145)
[2022-01-11] MEDS ORDERED: Gabapentin 300 MG CAP PO SCH ×2 (09:00→21:00)
[2022-01-11] MEDS: Gabapentin 300 MG CAP PO SCH (09:29)
[2022-01-11] MEDS: Sodium Chloride 1 GM TAB PO SCH ×3 (09:29→20:57)
[2022-01-11] MEDS: Lisinopril 20 MG TAB PO SCH ×2 (09:29→20:57)
[2022-01-11] MEDS: Amlodipine 5 MG TAB PO SCH (09:29)
[2022-01-11] MEDS: busPIRone HCl 5 MG TAB PO SCH ×2 (09:30→20:57)
[2022-01-11] MEDS: Senokot S 8.6-50 MG TAB PO SCH ×2 (09:30→20:58)
[2022-01-11] MEDS: Acetaminophen 325 MG TAB PO PRN (20:45)
[2022-01-12 06:05] LABS: Anion Gap 13 mmol/L (10-20); BUN (Urea Nitrogen) 19 mg/dL (9.8-20.1); Calc. Creatinine Clearance 44 mL/min (70-130); Carbon Dioxide 17 mmol/L (23-31); Chloride 104 mmol/L (98-107); Estimated GFR 76; Glucose 94 mg/dL (83-110); Potassium 4.3 mmol/L (3.5-5.1); Sodium 130 mmol/L (136-145)
[2022-01-12] MEDS: hydrALAZINE 20 MG/ML VIAL SLOW IVP PRN (06:14)
[2022-01-12] MEDS: Amlodipine 5 MG TAB PO SCH (09:44)
[2022-01-12] MEDS: busPIRone HCl 5 MG TAB PO SCH (09:44)
[2022-01-12] MEDS: Acetaminophen 325 MG TAB PO PRN (09:44)
[2022-01-12] MEDS: Gabapentin 300 MG CAP PO SCH (09:45)
[2022-01-12] MEDS: Sodium Chloride 1 GM TAB PO SCH ×2 (09:45→13:36)
[2022-01-12] MEDS: Lisinopril 20 MG TAB PO SCH (09:46)
[2022-01-12] MEDS: Senokot S 8.6-50 MG TAB PO SCH (09:46)
[2022-01-12] MEDS ORDERED: Amlodipine 5 MG TAB PO SCH (10:15)
[2022-01-12 12:16] VITALS: BP 128/61; TEMP 98.1
[2022-01-13] MEDS ORDERED: Amlodipine 10 MG TAB PO SCH (09:00)
== END 2022-01-12 14:55 | disposition home or self-care (01) | DRG 472 ==
LOC: SURG A 01-06 07:19 → SJJU 01-06 14:23
PROVIDERS: ADMIT Internal Medicine; ATTEND Neurological Surgery
PROC: 0RG2071 Fusion of 2 or more Cervical Vertebral Joints with Autologous Tissue Substitute, Posterior Approach, Posterior Column, Open Approach (ICD-10-PCS; principal; 2022-01-06)
PROC: 01N10ZZ Release Cervical Nerve, Open Approach (ICD-10-PCS; 2022-01-06)
DX: M43.12 Spondylolisthesis, cervical region (principal); E22.2 Syndrome of inappropriate secretion of antidiuretic hormone; M50.01 Cervical disc disorder with myelopathy, high cervical region; N17.9 Acute kidney failure, unspecified; M48.02 Spinal stenosis, cervical region; Z20.822 Contact with and (suspected) exposure to COVID-19; F41.9 Anxiety disorder, unspecified; F32.A Depression, unspecified; I12.9 Hypertensive chronic kidney disease with stage 1 through stage 4 chronic kidney disease, or unspecified chronic kidney disease; D63.1 Anemia in chronic kidney disease; N18.2 Chronic kidney disease, stage 2 (mild); E87.6 Hypokalemia; I25.10 Atherosclerotic heart disease of native coronary artery without angina pectoris; Z79.899 Other long term (current) drug therapy
CPT/HCPCS: 36415; 71046; 76000; 80048; 81001; 82436; 82533; 83735; 83930; 83935; 84133; 84300; 84443; 85025; 85027; 85610; 85730; 87086; 87811; 93970; C1713; C1768; C1776; J0360; J0690; J1100; J1170; J1885; J2370; J2405; J2704; J3370; J3475; J3490; J7050

== ENCOUNTER 2022-01-03 09:11 | Outpatient (CLI) | payer MEDICARE ==
[2022-01-03 10:58] LABS: Anion Gap 13 mmol/L (10-20); BUN (Urea Nitrogen) 22 mg/dL (9.8-20.1); Calc. Creatinine Clearance 0 mL/min (70-130); Calcium 10.1 mg/dL (7.8-10.44); Carbon Dioxide 28 mmol/L (23-31); Chloride 94 mmol/L (98-107); Estimated GFR 44; Glucose 118 mg/dL (83-110); Potassium 4.7 mmol/L (3.5-5.1); Sodium 130 mmol/L (136-145)
[2022-01-03 11:02] LABS: Hemoglobin 12.1 g/dL (12.0-15.5); Mean Corpuscular Hemoglobin 31.1 pg (27.0-33.0); Mean Corpuscular Volume 91.5 fl (81.6-98.3); Red Blood Cell (RBC) Count 3.89 10x6/uL (3.90-5.03); White Blood Cell (WBC) Count 6.9 10x3/uL (3.5-10.5)
[2022-01-03 11:14] LABS: Prothrombin Time 10.5 sec (9.5-12.1)
== END 2022-01-03 09:12 | disposition home or self-care (01) ==
LOC: LABBT 09:11
PROVIDERS: ATTEND Neurological Surgery
DX: Z01.812 Encounter for preprocedural laboratory examination (principal); M47.12 Other spondylosis with myelopathy, cervical region; Z20.822 Contact with and (suspected) exposure to COVID-19
CPT/HCPCS: 80048; 85027; 85610; 85730; 87811

== ENCOUNTER 2022-07-09 16:20 | Emergency (ER) | payer MEDICARE ==
[2022-07-09] MEDS ORDERED: Cephalexin 250 MG CAP ONE (17:12)
[2022-07-09] MEDS ORDERED: Sulfameth/Trimethoprim DS 800-160mg TAB PO SCH (18:15)
== END 2022-07-09 18:36 ==
LOC: ERS 16:20
DX: L03.115 Cellulitis of right lower limb (principal); I10 Essential (primary) hypertension; Z79.82 Long term (current) use of aspirin; Z79.899 Other long term (current) drug therapy; M79.604 Pain in right leg
CPT/HCPCS: 93970

== ENCOUNTER 2023-01-31 17:59 | Emergency (ER) | payer MEDICARE, MEDICAID ==
[2023-01-31 18:51] LABS: #Eosinphils 0.2 thou/uL (0.0-0.7); #Monocytes 0.7 thou/uL (0.11-0.59); #Neutrophils 4.8 thou/uL (1.40-6.50); %Basophils 0.5 % (0.0-1.0); %Eosinophils 2.6 % (0.0-10.0); %Lymphocytes 12.4 % (21.0-51.0); Hematocrit 36.8 % (36.0-47.0); Mean Corpuscular HGB CONC 32.6 g/dL (32.0-36.0); Mean Corpuscular Hemoglobin 31.7 pg (27.0-31.0); Mean Corpuscular Volume 97.1 fl (78.0-98.0); Mean Platelet Volume 9.8 fL (7.4-10.4); Platelet Count 221 10x3/uL (130-400); RBC Distribution Width 14.5 % (11.5-14.5); Red Blood Cell (RBC) Count 3.79 mill/uL (4.20-5.40); White Blood Cell (WBC) Count 6.5 10x3/uL (4.8-10.8)
[2023-01-31] MEDS ORDERED: Acetaminophen 325 MG TAB ONE (19:06)
[2023-01-31 19:17] LABS: ALT (SGPT) 19 U/L (8-55); AST (SGOT) 22 U/L (5-34); Albumin 3.8 g/dL (3.4-4.8); Alkaline Phosphatase 91 U/L (40-110); Anion Gap 14 mmol/L (10-20); BUN (Urea Nitrogen) 17 mg/dL (9.8-20.1); Bilirubin, Total 0.7 mg/dL (0.2-1.2); CK (CPK) 36 U/L (29-168); Calc. Creatinine Clearance 0 mL/min (70-130); Carbon Dioxide 24 mmol/L (23-31); Chloride 103 mmol/L (98-107); Estimated GFR 49; Globulin 2.8 g/dL (2.4-3.5); Glucose 103 mg/dL (83-110); Protein, Total 6.6 g/dL (5.8-8.1); Sodium 137 mmol/L (136-145)
[2023-01-31 19:20] LABS: Troponin I 0.011 ng/mL (< 0.028)
== END 2023-02-01 01:15 ==
LOC: ERS 17:59
DX: S72.012A Unspecified intracapsular fracture of left femur, initial encounter for closed fracture (principal); I48.91 Unspecified atrial fibrillation; R60.0 Localized edema; I10 Essential (primary) hypertension; W19.XXXA Unspecified fall, initial encounter
CPT/HCPCS: 36415; 70450; 72125; 72170; 80053; 82550; 83880; 84443; 84484; 85025; 93005

== ENCOUNTER 2023-05-28 13:34 | Emergency (ER) | payer MEDICARE, MEDICAID ==
[2023-05-28 14:11] LABS: #Basophils 0.1 thou/uL (0.0-0.2); #Eosinphils 0.2 thou/uL (0.0-0.7); #Monocytes 0.7 thou/uL (0.11-0.59); #Neutrophils 6.7 thou/uL (1.40-6.50); %Basophils 0.6 % (0.0-1.0); %Eosinophils 2.5 % (0.0-10.0); %Lymphocytes 9.9 % (21.0-51.0); %Monocytes 8.7 % (0.0-10.0); %Neutrophils 78.1 % (42.0-75.0); Hematocrit 40.3 % (36.0-47.0); Mean Corpuscular HGB CONC 32.3 g/dL (32.0-36.0); Mean Corpuscular Hemoglobin 30.1 pg (27.0-31.0); Mean Corpuscular Volume 93.3 fl (78.0-98.0); Mean Platelet Volume 10.2 fL (7.4-10.4); Platelet Count 213 10x3/uL (130-400); Red Blood Cell (RBC) Count 4.32 mill/uL (4.20-5.40); White Blood Cell (WBC) Count 8.6 10x3/uL (4.8-10.8)
[2023-05-28 14:32] LABS: ALT (SGPT) 11 U/L (8-55); AST (SGOT) 18 U/L (5-34); Alkaline Phosphatase 101 U/L (40-110); Anion Gap 12 mmol/L (10-20); BUN (Urea Nitrogen) 18 mg/dL (9.8-20.1); Bilirubin, Total 0.7 mg/dL (0.2-1.2); Calc. Creatinine Clearance 0 mL/min (70-130); Calcium 9.8 mg/dL (7.8-10.44); Carbon Dioxide 27 mmol/L (23-31); Chloride 101 mmol/L (98-107); Estimated GFR 50; Globulin 3.2 g/dL (2.4-3.5); Glucose 116 mg/dL (83-110); Potassium 4.1 mmol/L (3.5-5.1); Protein, Total 7.2 g/dL (5.8-8.1); Sodium 136 mmol/L (136-145)
[2023-05-28] MEDS ORDERED: Acetaminophen 500 MG TAB ONE (14:58)
[2023-05-28] MEDS ORDERED: Lisinopril 10 MG TAB ONE (16:10)
== END 2023-05-28 17:30 | disposition home or self-care (01) ==
LOC: ERS 13:34
DX: S00.83XA Contusion of other part of head, initial encounter (principal); M25.552 Pain in left hip; I48.92 Unspecified atrial flutter; I10 Essential (primary) hypertension; Z23 Encounter for immunization; W07.XXXA Fall from chair, initial encounter; R41.0 Disorientation, unspecified
CPT/HCPCS: 70450; 70486; 72125; 72170; 80053; 84484; 85025; 93005; 94760